=== PATIENT | female | born 1990 | race Two or more races ===

== ENCOUNTER 2022-04-03 10:09 | Inpatient (IN) | payer OTHER ==
[~2022-04-03] VITALS: Ht 162.6 cm; Wt 81.6 kg
[2022-04-16] MEDS ORDERED: DICLOFENAC SODI75 MG (11:15)
[2022-04-16] MEDS ORDERED: KETOCONAZOLE15 GM (11:15)
[2022-04-16] MEDS ORDERED: TIZANIDINE HCL4 MG (11:15)
[2022-04-16] MEDS ORDERED: SPRINTEC 28 DA1 EACH (11:15)
[2022-04-16] MEDS ORDERED: HYDROCORTISO453.6 G1 (11:15)
== END 2022-04-18 10:40 | disposition home or self-care (01) | DRG 743 ==
LOC: O/R 04-15 07:31 → OB/GYN 04-15 08:20
PROVIDERS: ADMIT Obstetrics & Gynecology; ATTEND Obstetrics & Gynecology
PROC: 0DN80ZZ Release Small Intestine, Open Approach (ICD-10-PCS; 2022-04-15)
PROC: 0UB90ZZ Excision of Uterus, Open Approach (ICD-10-PCS; principal; 2022-04-15 08:20)
DX: D25.9 Leiomyoma of uterus, unspecified (principal); K66.0 Peritoneal adhesions (postprocedural) (postinfection); Z20.822 Contact with and (suspected) exposure to COVID-19